=== PATIENT | male | born 1955 | race Caucasian/White ===

== ENCOUNTER → 2023-11-02 08:48 | Outpatient (REF) | payer MEDICARE, SELFPAY | LOC: HWRAD 08:48 | PROVIDERS: ATTENDING PHYSICIAN Physician Assistant Medical | DX: R74.8 Abnormal levels of other serum enzymes (principal) | CPT/HCPCS: 76700 ==

== ENCOUNTER → 2024-10-31 11:31 | Outpatient (REF) | payer MEDICARE, SELFPAY | LOC: HWRAD 11:31 | PROVIDERS: ATTENDING PHYSICIAN Internal Medicine | DX: M25.561 Pain in right knee (principal) | CPT/HCPCS: 73564 ==